=== PATIENT | female | born 1980 | race Caucasian/White ===

== ENCOUNTER 2019-08-27 03:14 | Emergency (ER) | payer OTHER ==
[~2019-08-27] VITALS: Wt 87.1 kg
[~2019-08-27 03:14] MED LIST: AMOXICILLIN500 M3 PO; AMOXICILLIN500 MG PO; ATARAX25 MG PO; CLEOCIN150 MG PO; DIFLUCAN150 MG PO; EES400 MG PO; ELIMITE 5%60 GM PO; FLONASE 0.05% 121 EA NAS; GUIATUSS AC SY120 ML PO; HYDROCODONE BIT1 T11 PO; KEFLEX500 MG PO; LOMOTIL 0.025 M1 TA1 PO; MEDROL DOSEPAK4 MG PO; Motrin,Rufen800 MG PO; NKHM; PHENERGAN W/ DE30 ML PO; PREDNICOT10 MG PO; ROBAXIN500 M1 PO; TRAMADOL HCL50 MG PO; ULTRAM50 MG PO; VICODIN ES 7501 TAB PO; ZOFRAN ODT4 MG SL; ZOVIRAX800 MG PO
[2019-08-27 03:20] VITALS: BP 132/96
[2019-08-27 03:59] LABS: BILIRUBIN 1+ (NEGATIVE); CLARITY SL CLOUDY (CLEAR); COLOR YELLOW (YELLOW); GLUCOSE NEGATIVE (NEGATIVE); KETONE NEGATIVE (NEGATIVE)
[2019-08-27 04:00] LABS: BLOOD TRACE-INTACT (NEGATIVE); LEUKO ESTERASE 1+ (NEGATIVE); NITRITE NEGATIVE (NEGATIVE); UROBILINOGEN 0.2 E.U./dl (0.2-1.0)
[2019-08-27 04:06] LABS: BASO # 0.1 10*3/uL (0.0-0.1); BASO % 0.5 % (0.0-1.0); EOS # 0.2 10*3/uL (0.0-0.4); EOS % 1.5 % (1.0-4.0); HEMATOCRIT 35.8 % (37.0-47.0); HEMOGLOBIN 10.9 g/dl (12.0-16.0); LYMPH # 1.6 10*3/uL (1.3-4.4); LYMPH % 15.6 % (27.0-41.0); MEAN CELL VOLUME 82.3 fl (81.0-99.0); MEAN CORPUSCULAR HGB 25.1 pg (27.0-31.0); MEAN CORPUSCULAR HGB CONC 30.4 g/dl (33.0-37.0); MEAN PLATELET VOLUME 9.9 fl (9.6-12.3); MONO # 0.6 10*3/uL (0.1-1.0); MONO % 6.1 % (3.0-9.0); NEUT # 7.6 10*3/uL (2.3-7.9); NEUT % 75.9 % (47.0-73.0); PLATELET COUNT AUTOMATED 321 10*3/uL (130-400); RED BLOOD COUNT 4.35 10*6/uL (4.10-5.10); RED CELL DISTRI WIDTH 15.1 % (0-14.5); WHITE BLOOD COUNT 10.1 10*3/uL (4.8-10.8)
[2019-08-27 04:09] LABS: BACTERIA 2+; EPITHELIAL CELLS 15-20
[2019-08-27 04:25] LABS: ALBUMIN 3.4 gm/dl (3.1-4.5); ALKALINE PHOSPHATASE 101 U/L (45-117); BUN 7 mg/dl (7-24); CHLORIDE 109 mmol/L (98-107); LIPASE 59 U/L (73-393); POTASSIUM 3.8 mmol/L (3.5-5.1); SGOT/AST 12 IU/L (3-35); SGPT/ALT 23 U/L (12-78); SODIUM 141 mmol/L (136-145); TOTAL PROTEIN 7.4 gm/dL (6.4-8.2)
[2019-08-27] MEDS ORDERED: FLAGYL500 MG PO (05:28)
[2019-08-30] MEDS ORDERED: NORCO 5-325 TA1 EACH PO (08:57)
== END 2019-08-27 05:25 | disposition home or self-care (01) ==
LOC: ED 03:14
PROVIDERS: Emergency Medicine
DX: K80.20 Calculus of gallbladder without cholecystitis without obstruction (principal); A59.9 Trichomoniasis, unspecified; R11.10 Vomiting, unspecified; Z79.899 Other long term (current) drug therapy

== ENCOUNTER → 2019-08-28 | Outpatient (CLI) | payer OTHER ==
[~2019-08-28] MED LIST changes: +FLAGYL500 MG PO; +NORCO 5-325 TA1 EACH PO
== END ==
LOC: US 16:30
DX: K80.20 Calculus of gallbladder without cholecystitis without obstruction (principal); K76.0 Fatty (change of) liver, not elsewhere classified; K83.8 Other specified diseases of biliary tract

== ENCOUNTER → 2019-08-30 | Day surgery (SDC) | payer OTHER ==
[~2019-08-30] VITALS: Ht 162.5 cm; Wt 95.3 kg
[2019-08-30 07:05] VITALS: BP 100/64
[2019-08-30 09:09] VITALS: BP 116/71
[2019-08-30 09:24] VITALS: BP 118/67
[2019-08-30 09:39] VITALS: BP 125/64
[2019-08-30 09:54] VITALS: BP 105/57
[2019-08-30 10:09] VITALS: BP 112/51
== END | disposition home or self-care (01) ==
LOC: SDC 08-29 13:15
DX: K80.12 Calculus of gallbladder with acute and chronic cholecystitis without obstruction (principal); Z98.51 Tubal ligation status; E66.9 Obesity, unspecified; Z68.42 Body mass index [BMI] 45.0-49.9, adult

== ENCOUNTER 2022-05-16 13:56 | Emergency (ER) | payer OTHER ==
[~2022-05-16] VITALS: Ht 157.4 cm; Wt 95.3 kg
[2022-05-16 13:57] VITALS: BP 131/74
[2022-05-16 14:20] LABS: BASO % 0.5 % (0.0-1.0); EOS # 0.2 10*3/uL (0.0-0.4); EOS % 1.9 % (1.0-4.0); HEMATOCRIT 36.5 % (37.0-47.0); LYMPH # 1.9 10*3/uL (1.3-4.4); LYMPH % 21.2 % (27.0-41.0); MEAN CELL VOLUME 80.9 fl (81.0-99.0); MEAN CORPUSCULAR HGB 25.3 pg (27.0-31.0); MEAN CORPUSCULAR HGB CONC 31.2 g/dl (33.0-37.0); MEAN PLATELET VOLUME 10.1 fl (9.6-12.3); MONO # 0.4 10*3/uL (0.1-1.0); MONO % 4.5 % (3.0-9.0); NEUT # 6.3 10*3/uL (2.3-7.9); NEUT % 71.3 % (47.0-73.0); PLATELET COUNT AUTOMATED 381 10*3/uL (130-400); RED BLOOD COUNT 4.51 10*6/uL (4.10-5.10); RED CELL DISTRI WIDTH 15.6 % (0-14.5); WHITE BLOOD COUNT 8.9 10*3/uL (4.8-10.8)
[2022-05-16 14:40] LABS: ALKALINE PHOSPHATASE 116 U/L (45-117); BUN 7 mg/dl (7-24); CHLORIDE 107 mmol/L (98-107); CREATININE 0.65 mg/dL (0.55-1.02); LIPASE 77 U/L (73-393); POTASSIUM 3.5 mmol/L (3.5-5.1); SGOT/AST 9 IU/L (3-35); SGPT/ALT 17 U/L (12-78); SODIUM 139 mmol/L (136-145)
[2022-05-16 14:44] LABS: BETA-HCG, QUANT < 1.0 mIU/mL (1-3)
== END 2022-05-16 16:01 | disposition home or self-care (01) ==
LOC: ED 13:56
PROVIDERS: Physician Assistant
DX: N93.8 Other specified abnormal uterine and vaginal bleeding (principal); Z90.89 Acquired absence of other organs

== ENCOUNTER 2022-12-07 13:19 | Emergency (ER) | payer OTHER ==
[~2022-12-07] VITALS: Wt 99.8 kg
[2022-12-07 13:52] VITALS: BP 129/73
[2022-12-07 14:30] LABS: BASO # 0.1 10*3/uL (0.0-0.1); BASO % 0.8 % (0.0-1.0); EOS # 0.1 10*3/uL (0.0-0.4); EOS % 1.9 % (1.0-4.0); HEMATOCRIT 33.9 % (37.0-47.0); LYMPH # 1.4 10*3/uL (1.3-4.4); LYMPH % 19.4 % (27.0-41.0); MEAN CELL VOLUME 75.2 fl (81.0-99.0); MEAN CORPUSCULAR HGB 21.7 pg (27.0-31.0); MEAN CORPUSCULAR HGB CONC 28.9 g/dl (33.0-37.0); MEAN PLATELET VOLUME 9.4 fl (9.6-12.3); MONO # 0.5 10*3/uL (0.1-1.0); MONO % 6.1 % (3.0-9.0); NEUT # 5.2 10*3/uL (2.3-7.9); NEUT % 70.8 % (47.0-73.0); PLATELET COUNT AUTOMATED 418 10*3/uL (130-400); RED BLOOD COUNT 4.51 10*6/uL (4.10-5.10); RED CELL DISTRI WIDTH 16.3 % (0-14.5); WHITE BLOOD COUNT 7.4 10*3/uL (4.8-10.8)
[2022-12-07 14:57] LABS: ALKALINE PHOSPHATASE 121 U/L (46-116); CHLORIDE 104 mmol/L (98-107); LIPASE 24 U/L (12-53); POTASSIUM 3.8 mmol/L (3.4-5.1); SGPT/ALT 13 U/L (10-49); TOTAL PROTEIN 7.5 gm/dL (6.0-8.0)
[2022-12-07 15:01] LABS: BETA-HCG, QUANT < 3.0 mIU/mL (3-10); BUN < 5 mg/dl (9-23)
[2022-12-07] MEDS ORDERED: ONDANSETRON4 MG SL (15:28)
== END 2022-12-07 15:45 | disposition home or self-care (01) ==
LOC: ED 13:19
PROVIDERS: Internal Medicine
DX: R10.9 Unspecified abdominal pain (principal); R11.0 Nausea; Z98.51 Tubal ligation status; Z98.890 Other specified postprocedural states

== ENCOUNTER 2023-01-11 14:54 | Emergency (ER) | payer OTHER ==
[~2023-01-11] VITALS: Wt 97.5 kg
[~2023-01-11 14:54] MED LIST changes: +ONDANSETRON4 MG SL
[2023-01-11 15:04] VITALS: BP 111/68
[2023-01-11 15:32] LABS: BASO % 0.5 % (0.0-1.0); EOS # 0.1 10*3/uL (0.0-0.4); EOS % 1.8 % (1.0-4.0); HEMATOCRIT 30.9 % (37.0-47.0); LYMPH # 1.6 10*3/uL (1.3-4.4); LYMPH % 20.1 % (27.0-41.0); MEAN CELL VOLUME 74.6 fl (81.0-99.0); MEAN CORPUSCULAR HGB 21.7 pg (27.0-31.0); MEAN CORPUSCULAR HGB CONC 29.1 g/dl (33.0-37.0); MEAN PLATELET VOLUME 9.5 fl (9.6-12.3); MONO # 0.4 10*3/uL (0.1-1.0); MONO % 5.4 % (3.0-9.0); NEUT # 5.7 10*3/uL (2.3-7.9); NEUT % 71.8 % (47.0-73.0); PLATELET COUNT AUTOMATED 392 10*3/uL (130-400); RED BLOOD COUNT 4.14 10*6/uL (4.10-5.10); WHITE BLOOD COUNT 7.9 10*3/uL (4.8-10.8)
[2023-01-11 15:45] LABS: ACT PARTIAL THROMBO TIME 25.6 SECONDS (20.0-32.1)
[2023-01-11 16:06] LABS: ALKALINE PHOSPHATASE 105 U/L (46-116); CHLORIDE 105 mmol/L (98-107); POTASSIUM 3.5 mmol/L (3.4-5.1); SGPT/ALT 12 U/L (10-49); TOTAL PROTEIN 7.1 gm/dL (6.0-8.0)
[2023-01-11 16:07] LABS: BUN < 5 mg/dl (9-23)
== END 2023-01-11 17:53 | disposition home or self-care (01) ==
LOC: ED 14:54
PROVIDERS: Emergency Medicine
DX: M75.52 Bursitis of left shoulder (principal); R07.89 Other chest pain; Z98.51 Tubal ligation status; Z98.890 Other specified postprocedural states

== ENCOUNTER 2023-02-12 20:04 | Emergency (ER) | payer OTHER ==
[~2023-02-12] VITALS: Ht 157.4 cm; Wt 97.5 kg
[2023-02-12 20:13] VITALS: BP 108/75
[2023-02-12 21:03] LABS: BASO # 0.1 10*3/uL (0.0-0.1); BASO % 0.7 % (0.0-1.0); EOS # 0.2 10*3/uL (0.0-0.4); EOS % 2.2 % (1.0-4.0); HEMATOCRIT 31.2 % (37.0-47.0); LYMPH # 2.6 10*3/uL (1.3-4.4); LYMPH % 26.3 % (27.0-41.0); MEAN CELL VOLUME 73.2 fl (81.0-99.0); MEAN CORPUSCULAR HGB 20.9 pg (27.0-31.0); MEAN CORPUSCULAR HGB CONC 28.5 g/dl (33.0-37.0); MEAN PLATELET VOLUME 9.2 fl (9.6-12.3); MONO # 0.8 10*3/uL (0.1-1.0); MONO % 7.6 % (3.0-9.0); NEUT # 6.2 10*3/uL (2.3-7.9); NEUT % 62.6 % (47.0-73.0); PLATELET COUNT AUTOMATED 405 10*3/uL (130-400); RED BLOOD COUNT 4.26 10*6/uL (4.10-5.10); RED CELL DISTRI WIDTH 16.1 % (0-14.5); WHITE BLOOD COUNT 9.9 10*3/uL (4.8-10.8)
[2023-02-12 22:18] LABS: ALKALINE PHOSPHATASE 109 U/L (46-116); BUN 6 mg/dl (9-23); CHLORIDE 108 mmol/L (98-107); POTASSIUM 3.6 mmol/L (3.4-5.1); SGPT/ALT 11 U/L (10-49); TOTAL PROTEIN 7.1 gm/dL (6.0-8.0)
== END 2023-02-13 00:24 | disposition home or self-care (01) ==
LOC: ED 20:04
PROVIDERS: Nurse Practitioner Family
DX: R07.89 Other chest pain (principal); M75.52 Bursitis of left shoulder; Z98.890 Other specified postprocedural states; Z98.51 Tubal ligation status

== ENCOUNTER 2023-05-28 19:58 | Emergency (ER) | payer OTHER ==
[~2023-05-28] VITALS: Ht 165.1 cm; Wt 98.9 kg
[2023-05-28 20:07] VITALS: BP 137/76
[2023-05-28 20:27] LABS: BASO # 0.1 10*3/uL (0.0-0.1); BASO % 0.6 % (0.0-1.0); EOS # 0.4 10*3/uL (0.0-0.4); EOS % 3.7 % (1.0-4.0); HEMATOCRIT 32.7 % (37.0-47.0); LYMPH # 2.1 10*3/uL (1.3-4.4); LYMPH % 22.8 % (27.0-41.0); MEAN CELL VOLUME 74.3 fl (81.0-99.0); MEAN CORPUSCULAR HGB CONC 29.7 g/dl (33.0-37.0); MEAN PLATELET VOLUME 9.3 fl (9.6-12.3); MONO # 0.5 10*3/uL (0.1-1.0); MONO % 5.5 % (3.0-9.0); NEUT # 6.3 10*3/uL (2.3-7.9); PLATELET COUNT AUTOMATED 382 10*3/uL (130-400); RED CELL DISTRI WIDTH 17.8 % (0-14.5); WHITE BLOOD COUNT 9.4 10*3/uL (4.8-10.8)
[2023-05-28 20:50] LABS: ALKALINE PHOSPHATASE 111 U/L (46-116); BUN 6 mg/dl (9-23); CHLORIDE 106 mmol/L (98-107); POTASSIUM 3.8 mmol/L (3.4-5.1); SGPT/ALT 9 U/L (5-49); TOTAL PROTEIN 7.2 gm/dL (6.0-8.0)
[2023-05-28] MEDS ORDERED: CYCLOBENZAPRINE5 M3 PO (21:39)
== END 2023-05-28 21:46 | disposition home or self-care (01) ==
LOC: ED 19:58
PROVIDERS: Physician Assistant Medical
DX: H65.91 Unspecified nonsuppurative otitis media, right ear (principal); R07.89 Other chest pain; Z98.51 Tubal ligation status; Z98.890 Other specified postprocedural states

== ENCOUNTER 2023-09-14 12:25 | Emergency (ER) | payer OTHER ==
[~2023-09-14] VITALS: Ht 160 cm; Wt 95.3 kg
[~2023-09-14 12:25] MED LIST changes: +CYCLOBENZAPRINE5 M3 PO
[2023-09-14] MEDS ORDERED: Ketorolac Tromethamine 30 MG/ML VIAL IM ONE (12:40)
[2023-09-14 12:52] LABS: BASO # 0.1 10*3/uL (0.0-0.1); BASO % 0.7 % (0.0-1.0); EOS # 0.1 10*3/uL (0.0-0.4); EOS % 1.8 % (1.0-4.0); HEMATOCRIT 37.9 % (37.0-47.0); LYMPH # 1.6 10*3/uL (1.3-4.4); LYMPH % 22.3 % (27.0-41.0); MEAN CELL VOLUME 80.6 fl (81.0-99.0); MEAN CORPUSCULAR HGB 23.6 pg (27.0-31.0); MEAN CORPUSCULAR HGB CONC 29.3 g/dl (33.0-37.0); MEAN PLATELET VOLUME 9.5 fl (9.6-12.3); MONO # 0.4 10*3/uL (0.1-1.0); NEUT % 69.5 % (47.0-73.0); PLATELET COUNT AUTOMATED 366 10*3/uL (130-400); RED CELL DISTRI WIDTH 18.5 % (0-14.5); WHITE BLOOD COUNT 7.3 10*3/uL (4.8-10.8)
[2023-09-14 13:07] LABS: ACT PARTIAL THROMBO TIME 26.5 SECONDS (20.0-32.1)
[2023-09-14 13:15] LABS: ALKALINE PHOSPHATASE 112 U/L (46-116); BUN 7 mg/dl (9-23); CHLORIDE 104 mmol/L (98-107); POTASSIUM 3.7 mmol/L (3.4-5.1); SGPT/ALT 11 U/L (5-49); TOTAL PROTEIN 7.6 gm/dL (6.0-8.0)
[2023-09-14 13:50] VITALS: BP 136/65
== END 2023-09-14 13:58 | disposition home or self-care (01) ==
LOC: ED 12:25
PROVIDERS: Physician Assistant Medical
DX: R07.89 Other chest pain (principal); Z20.822 Contact with and (suspected) exposure to COVID-19; E11.9 Type 2 diabetes mellitus without complications; Z98.51 Tubal ligation status; Z98.890 Other specified postprocedural states

== ENCOUNTER 2023-12-19 15:49 | Emergency (ER) | payer OTHER ==
[~2023-12-19] VITALS: Ht 160 cm; Wt 97.5 kg
[2023-12-19 16:04] VITALS: BP 145/76
[2023-12-19 17:10] LABS: BASO # 0.1 10*3/uL (0.0-0.1); BASO % 0.6 % (0.0-1.0); EOS # 0.2 10*3/uL (0.0-0.4); EOS % 2.4 % (1.0-4.0); HEMATOCRIT 36.5 % (37.0-47.0); LYMPH # 1.8 10*3/uL (1.3-4.4); LYMPH % 19.6 % (27.0-41.0); MEAN CELL VOLUME 84.7 fl (81.0-99.0); MEAN CORPUSCULAR HGB 25.8 pg (27.0-31.0); MEAN CORPUSCULAR HGB CONC 30.4 g/dl (33.0-37.0); MEAN PLATELET VOLUME 10.1 fl (9.6-12.3); MONO # 0.5 10*3/uL (0.1-1.0); NEUT # 6.3 10*3/uL (2.3-7.9); NEUT % 70.8 % (47.0-73.0); PLATELET COUNT AUTOMATED 346 10*3/uL (130-400); RED BLOOD COUNT 4.31 10*6/uL (4.10-5.10); WHITE BLOOD COUNT 8.9 10*3/uL (4.8-10.8)
[2023-12-19] MEDS ORDERED: IOHEXOL 350 MG/ML 100 ML VIAL IV ONE (17:20)
[2023-12-19] MEDS ORDERED: SODIUM CHLORIDE 0.9% 100 ML BAG IV ONE (17:20)
[2023-12-19 17:34] LABS: ALKALINE PHOSPHATASE 113 U/L (46-116); BUN 5 mg/dl (9-23); CHLORIDE 105 mmol/L (98-107); POTASSIUM 3.5 mmol/L (3.4-5.1); SGPT/ALT 10 U/L (5-49); TOTAL PROTEIN 7.3 gm/dL (6.0-8.0)
== END 2023-12-19 20:54 | disposition home or self-care (01) ==
LOC: ED 15:49
PROVIDERS: Nurse Practitioner
DX: R07.89 Other chest pain (principal); M79.602 Pain in left arm; Z79.899 Other long term (current) drug therapy

== ENCOUNTER 2024-03-23 21:20 | Emergency (ER) | payer OTHER ==
[~2024-03-23] VITALS: Ht 160 cm; Wt 95.3 kg
[2024-03-23 21:30] VITALS: BP 135/108
[2024-03-23 22:00] LABS: BASO # 0.1 10*3/uL (0.0-0.1); BASO % 0.6 % (0.0-1.0); EOS # 0.3 10*3/uL (0.0-0.4); HEMATOCRIT 33.9 % (37.0-47.0); LYMPH # 2.5 10*3/uL (1.3-4.4); MEAN CELL VOLUME 78.7 fl (81.0-99.0); MEAN CORPUSCULAR HGB 22.7 pg (27.0-31.0); MEAN CORPUSCULAR HGB CONC 28.9 g/dl (33.0-37.0); MEAN PLATELET VOLUME 9.3 fl (9.6-12.3); MONO # 0.6 10*3/uL (0.1-1.0); MONO % 7.6 % (3.0-9.0); NEUT # 4.8 10*3/uL (2.3-7.9); NEUT % 58.3 % (47.0-73.0); PLATELET COUNT AUTOMATED 366 10*3/uL (130-400); RED BLOOD COUNT 4.31 10*6/uL (4.10-5.10); RED CELL DISTRI WIDTH 15.3 % (0-14.5); WHITE BLOOD COUNT 8.2 10*3/uL (4.8-10.8)
[2024-03-23 22:12] LABS: ACT PARTIAL THROMBO TIME 24.3 SECONDS (20.0-32.1)
[2024-03-23 22:29] LABS: ALKALINE PHOSPHATASE 105 U/L (46-116); CHLORIDE 105 mmol/L (98-107); POTASSIUM 3.3 mmol/L (3.4-5.1); SGPT/ALT 9 U/L (5-49); TOTAL PROTEIN 7.3 gm/dL (6.0-8.0)
[2024-03-23 22:31] LABS: BUN < 5 mg/dl (9-23)
[2024-03-23] MEDS ORDERED: AMOX-CLAV 875-1 EACH PO (23:57)
== END 2024-03-24 00:08 | disposition home or self-care (01) ==
LOC: ED 21:20
PROVIDERS: Nurse Practitioner
DX: K04.7 Periapical abscess without sinus (principal); E11.9 Type 2 diabetes mellitus without complications; H53.8 Other visual disturbances; R20.0 Anesthesia of skin; Z98.51 Tubal ligation status; Z98.890 Other specified postprocedural states

== ENCOUNTER 2024-05-25 14:57 | Emergency (ER) | payer OTHER ==
[~2024-05-25] VITALS: Ht 157.4 cm; Wt 97.5 kg
[~2024-05-25 14:57] MED LIST changes: +AMOX-CLAV 875-1 EACH PO
[2024-05-25 15:07] VITALS: BP 145/84
[2024-05-25 15:29] LABS: BASO # 0.1 10*3/uL (0.0-0.1); BASO % 1.3 % (0.0-1.0); EOS # 0.1 10*3/uL (0.0-0.4); HEMATOCRIT 37.4 % (37.0-47.0); LYMPH # 1.8 10*3/uL (1.3-4.4); LYMPH % 24.9 % (27.0-41.0); MEAN CELL VOLUME 80.8 fl (81.0-99.0); MEAN CORPUSCULAR HGB 23.3 pg (27.0-31.0); MEAN CORPUSCULAR HGB CONC 28.9 g/dl (33.0-37.0); MEAN PLATELET VOLUME 9.2 fl (9.6-12.3); MONO # 0.4 10*3/uL (0.1-1.0); MONO % 6.1 % (3.0-9.0); NEUT # 4.7 10*3/uL (2.3-7.9); PLATELET COUNT AUTOMATED 328 10*3/uL (130-400); RED BLOOD COUNT 4.63 10*6/uL (4.10-5.10); WHITE BLOOD COUNT 7.2 10*3/uL (4.8-10.8)
[2024-05-25 15:42] LABS: ACT PARTIAL THROMBO TIME 24.8 SECONDS (20.0-32.1)
[2024-05-25 15:48] LABS: BUN 12 mg/dl (9-23); CHLORIDE 103 mmol/L (98-107); POTASSIUM 3.7 mmol/L (3.4-5.1)
[2024-05-25 17:22] LABS: BILIRUBIN Negative (Negative); BLOOD Negative (Negative); CLARITY Clear (Clear); COLOR Yellow (Yellow); GLUCOSE Negative (Negative); KETONE Negative (Negative); LEUKO ESTERASE 2+ (Negative); NITRITE Negative (Negative); PH 5.5 (4.5-8.0); SPECIFIC GRAVITY 1.015 (1.001-1.030); UROBILINOGEN 0.2 E.U./dl (0.0-1.0)
[2024-05-25] MEDS ORDERED: Ketorolac Tromethamine 30 MG/ML VIAL IM ONE (17:40)
[2024-05-25] MEDS ORDERED: methylPREDNISolone sod succ 125 MG VIAL IM ONE (17:40)
[2024-05-25] MEDS ORDERED: METHOCARBAMOL 500 MG TAB PO ONE (17:40)
[2024-05-25] MEDS ORDERED: NAPROSYN500 MG PO (19:17)
[2024-05-25] MEDS ORDERED: PREDNISONE50 MG PO (19:17)
[2024-05-25] MEDS ORDERED: METHOCARBAMOL500 M1 PO (19:17)
== END 2024-05-25 19:32 | disposition home or self-care (01) ==
LOC: ED 14:57
PROVIDERS: Internal Medicine
DX: M54.12 Radiculopathy, cervical region (principal); R42 Dizziness and giddiness; R20.0 Anesthesia of skin; F17.200 Nicotine dependence, unspecified, uncomplicated

== ENCOUNTER 2024-11-01 17:05 | Emergency (ER) | payer OTHER ==
[~2024-11-01] VITALS: Ht 157.4 cm; Wt 97.5 kg
[~2024-11-01 17:05] MED LIST changes: +METHOCARBAMOL500 M1 PO; +NAPROSYN500 MG PO; +PREDNISONE50 MG PO
[2024-11-01 17:41] VITALS: BP 122/66
[2024-11-01] MEDS ORDERED: METFORMIN HYDR500 MG PO (17:46)
[2024-11-01] MEDS ORDERED: FEROSUL325 M1 PO (17:46)
[2024-11-01] MEDS ORDERED: MAGNESIUM400 M1 PO (17:47)
[2024-11-01] MEDS ORDERED: [UNRECOGNIZED DRUG - OTHER] PO (17:49)
[2024-11-01] MEDS ORDERED: AMOX-CLAV 875-1 EACH PO (18:09)
[2024-11-01] MEDS ORDERED: Bacitracin Zinc 14 GM TUBE T ONE (18:10)
[2024-11-01] MEDS ORDERED: Amoxicillin/Clavulanate Pota 875 MG TAB PO ONE (18:10)
[2024-11-01] MEDS ORDERED: Tdap Vaccine 0.5 ML SYR (Adult Vaccine) IM ONE (18:10)
== END 2024-11-01 18:29 | disposition home or self-care (01) ==
LOC: ED 17:05
DX: S01.101A Unspecified open wound of right eyelid and periocular area, initial encounter (principal); E11.9 Type 2 diabetes mellitus without complications; Z79.84 Long term (current) use of oral hypoglycemic drugs; Z79.899 Other long term (current) drug therapy; W54.1XXA Struck by dog, initial encounter; Y93.89 Activity, other specified; Y92.89 Other specified places as the place of occurrence of the external cause; Y99.8 Other external cause status